=== PATIENT | male | born 1995 | race Caucasian/White ===

== ENCOUNTER 2024-05-08 23:19 | Outpatient (CLI) | payer MEDICAID, SELFPAY | END 2024-05-08 23:20 | disposition home or self-care (01) | LOC: AMB 05-13 07:30 | PROVIDERS: Visit Provider Emergency Medicine Emergency Medical Services | DX: S09.90XA Unspecified injury of head, initial encounter (principal); Y04.2XXA Assault by strike against or bumped into by another person, initial encounter; Y92.9 Unspecified place or not applicable | CPT/HCPCS: A0425; A0429 ==

== ENCOUNTER 2024-05-09 00:03 | Emergency (ER) | payer MEDICAID, SELFPAY ==
[2024-05-09 00:07] VITALS: BP 129/87; PULSE 96; RESP 18; TEMP 37.3; O2SAT 95; BMI 24.4
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
[2024-05-09 01:16] VITALS: BP 121/84; PULSE 90; RESP 18; TEMP 37.3; O2SAT 95
== END 2024-05-09 01:18 | disposition home or self-care (01) ==
LOC: ED 01:00
PROVIDERS: Emergency Provider Family Medicine
DX: S09.90XA Unspecified injury of head, initial encounter (principal)
CPT/HCPCS: 99281; 99282; 99283